=== PATIENT | female | born 1995 | race Two or more races ===

== ENCOUNTER 2017-03-13 01:20 | Emergency (ER) | payer SELFPAY | END 2017-03-13 02:00 | disposition left against medical advice (07) | LOC: ED 01:20 | DX: Z02.89 Encounter for other administrative examinations (principal); T14.90XA Injury, unspecified, initial encounter ==

== ENCOUNTER 2017-09-13 18:36 | Emergency (ER) | payer OTHER ==
[2017-09-13] MEDS ORDERED: Amoxicillin-Clav 875-125 mg Tab PO STA (19:01)
[2017-09-13] MEDS ORDERED: TDAP Vaccine 0.5 mL Syr IM ONE (19:01)
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
[2017-09-13 20:31] VITALS: PULSE 74; O2SAT 99
[2017-09-13 20:46] VITALS: BP 107/52; RESP 19; TEMP 98
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
== END 2017-09-13 20:46 | disposition home or self-care (01) ==
LOC: ED 18:36
DX: S02.2XXA Fracture of nasal bones, initial encounter for closed fracture (principal); S00.511A Abrasion of lip, initial encounter; S01.512A Laceration without foreign body of oral cavity, initial encounter; Y04.0XXA Assault by unarmed brawl or fight, initial encounter; Z23 Encounter for immunization

== ENCOUNTER 2018-05-16 10:50 | Emergency (ER) | payer OTHER ==
[2018-05-16 11:03] VITALS: BMI 22.1
[2018-05-16 11:24] VITALS: RESP 18; TEMP 98.4
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
[2018-05-16 12:08] LABS: BASO # 0.01 K/mm3 (0.0-2.0); BASO % 0.2 % (0.0-3.0); EOS # 0.1 (0.0-0.7); EOS % 1.6 % (1.5-5.0); HEMOGLOBIN 13.5 g/dL (12.0-16.0); LYMPH # 1.7 (1.2-3.4); LYMPH % 34.4 % (22.0-35.0); MEAN CELL VOLUME 92.1 fl (80.0-105.0); MEAN CORPUSCULAR HEMOGLOBIN 31.3 pg (25.0-35.0); MEAN CORPUSCULAR HGB CONC 33.9 g/dl (31.0-37.0); MEAN PLATELET VOLUME 9.9 fl (7.0-11.0); MONO # 0.6 (0.1-0.6); MONO % 12.2 % (1.0-6.0); RBC 4.32 10^6/uL (3.5-6.1); RED CELL DISTRIBUTION WIDTH 12.7 % (11.5-14.5); WHITE BLOOD COUNT 4.9 10^3/uL (4.5-11.0)
[2018-05-16] MEDS ORDERED: DiphenhydrAMINE 50 mg/ml Inj ONE (12:11)
[2018-05-16] MEDS ORDERED: DiphenhydrAMINE 50 mg/ml Inj IVP STA (12:11)
[2018-05-16 12:15] LABS: PH,URINE 7.5 (4.7-8.0); URINE BILIRUBIN SMALL (NEGATIVE); URINE BLOOD NEGATIVE (NEGATIVE); URINE GLUCOSE (UA) NEGATIVE (NEGATIVE); URINE LEUKOCYTE ESTERASE TRACE Leu/uL (NEGATIVE); URINE PROTEIN TRACE mg/dL (<30 mg/dL)
[2018-05-16 12:17] LABS: URINE APPEARANCE SLIGHT-CLOUDY (CLEAR); URINE COLOR YELLOW (YELLOW)
[2018-05-16 12:18] LABS: ALB/GLOB RATIO 1.2 (1.1-1.8); ALBUMIN 4.5 g/dL (3.0-4.8); ALT/SGPT 10 U/L (7-56); AST/SGOT 29 U/L (14-36); BLOOD UREA NITROGEN 7 mg/dL (7-21); CALCIUM 9.5 mg/dL (8.4-10.5); GFR NON-AFRICAN AMERICAN > 60
[2018-05-16 12:27] LABS: URINE BACTERIA MANY /hpf; URINE EPITHELIAL CELLS MANY /hpf (0-5); URINE RBC 0 - 2 /hpf (0-2)
[2018-05-16 13:13] VITALS: BP 107/62; PULSE 70; O2SAT 98
--- NOTE | 2018-05-16 14:35 | US ---
Date of service: 05/16/2018 HISTORY: early gestation, pain, ?ectopic. LMP: Possibly end of March as per patient COMPARISON: None available. TECHNIQUE: Grayscale and color Doppler sonographic images were obtained of the pelvis utilizing transvaginal approach. FINDINGS: UTERUS: Retroverted uterus. There is an intrauterine gestational sac with a pole with crown-rump length measuring 0.8 cm corresponding to a gestational age of 6 weeks 5 days. Positive heartbeat of 150 beats per minute was seen. Normal-size yolk sac was identified. Small subchorionic hemorrhage noted measuring 1.7 x 0.4 cm. CERVIX: Closed and measures 2.5 cm. RIGHT OVARY: Measures 2.5 x 1.3 x 2.3 cm. Follicles noted normal flow. LEFT OVARY: Measures 3.4 x 2.9 x 2.3 cm. Corpus luteum noted measuring 2 cm normal flow. FREE FLUID: No significant free fluid noted. OTHER FINDINGS: None. IMPRESSION: Single live intrauterine gestation corresponding to a gestational age of 6 weeks 5 days. Left ovary corpus luteum measuring 2 cm. Small subchorionic hemorrhage. Recommend follow-up.
== END 2018-05-16 13:28 | disposition left against medical advice (07) ==
LOC: ED 10:50
DX: O23.591 Infection of other part of genital tract in pregnancy, first trimester (principal); Z3A.01 Less than 8 weeks gestation of pregnancy
CPT/HCPCS: 76817; 80053; 81001; 81025; 84702; 85025; 85651; 87086; 87491; 87591; 96374; 96375; 99284; J1200; J2765